=== PATIENT | female | born 1990 | race Caucasian/White ===

== ENCOUNTER → 2020-05-06 | Outpatient (CLI) | payer OTHER ==
--- NOTE | 2020-05-06 16:42 | REP ---
INDICATION: DATING . COMPARISON: None. TECHNIQUE: Real-time sonographic evaluation of gravid uterus performed. FINDINGS: There is a single living intrauterine gestation. The estimated gestational age is 9 weeks 6 days based on a crown-rump length of 30 mm. EDC 12/03/2020. heart rate 173 beats per minute. Placenta is anterior and grade 0. There is no subchorionic hemorrhage. Cystic structure in the left ovary probably represents a corpus luteum 2.6 x 2.8 x 2.8 cm. With duplex Doppler evaluation, blood flow is seen in the left ovary with no evidence of torsion. IMPRESSION: Viable intrauterine gestation as above. <Electronically signed by Lul Guillen > 05/06/20 2130
== END ==
LOC: M RAD 15:56
PROVIDERS: ATTEND Physician Assistant
DX: Z32.01 Encounter for pregnancy test, result positive (principal)